=== PATIENT | male | born 1960 | race Two or more races ===

== ENCOUNTER 2020-11-07 06:14 | Day surgery (SDC) | payer OTHER ==
[~2020-11-07] VITALS: Ht 30.5 cm; Wt 0.5 kg
[2020-11-07] MEDS ORDERED: BUPIVACAINE 0.5% MPF INJ 30ML SDV IJ ONE (06:43)
[2020-11-07] MEDS ORDERED: LIDOCAINE 1% HCL (LOCAL ANESTH.) INJ 20ML MDV ONE (06:43)
[2020-11-07] MEDS ORDERED: ceFAZolin 1GM/50ML 100 ML IV ONE (07:14)
[2020-11-07] MEDS ORDERED: HEPARIN SODIUM (PORCINE) 5000 UNITS/ML 1ML VIAL ONE (07:15)
[2020-11-07] MEDS ORDERED: PROPOFOL 10 MG/ML 20 ML IV ONE (07:21)
[2020-11-07] MEDS ORDERED: ONDANSETRON HCL 4 MG/2 ML VIAL ONE (07:21)
[2020-11-07] MEDS ORDERED: DexAMETHasone SOD PHOS 10MG/1ML VIAL INJ ONE (07:21)
[2020-11-07] MEDS ORDERED: fentaNYL CITRATE 100 MCG/2 ML VL ONE (07:21)
[2020-11-07] MEDS ORDERED: MIDAZOLAM HCL 2MG/2ML 2ml VIAL (1mg/ml) ONE (07:21)
[2020-11-07] MEDS ORDERED: LIDOCAINE 2% (LOCAL ANESTH.) PF 5ml SDV ONE (07:21)
[2020-11-07] MEDS ORDERED: HYDROmorphone HCL 2 MG/ML VL ONE (07:21)
[2020-11-07] MEDS ORDERED: GLYCOPYRROLATE 0.2 MG/ML 1ML VIAL ONE (07:21)
[2020-11-07] MEDS ORDERED: KETAMINE HCL 10 ML ONE (07:30)
[2020-11-07] MEDS ORDERED: HYDROmorphone HCL 2 MG/ML VL IV PRN (09:15)
[2020-11-07] MEDS ORDERED: ONDANSETRON HCL 4 MG/2 ML VIAL IV PRN (09:15)
[2020-11-07 10:10] VITALS: BP 147/77
== END 2020-11-07 10:10 | disposition home or self-care (01) ==
LOC: SUR 06:14
DX: K40.30 Unilateral inguinal hernia, with obstruction, without gangrene, not specified as recurrent (principal); D17.6 Benign lipomatous neoplasm of spermatic cord; Z98.890 Other specified postprocedural states; Z79.899 Other long term (current) drug therapy; Z98.49 Cataract extraction status, unspecified eye
CPT/HCPCS: 49507; 55520; C1781; J0690; J1100; J1170; J1644; J2001; J2250; J2405; J2704; J3010; J3490